=== PATIENT | female | born 1960 | race Caucasian/White ===

== ENCOUNTER 2016-07-19 07:14 | Emergency (ER) | payer OTHER, MEDICAID ==
[~2016-07-19] VITALS: Ht 162.6 cm; Wt 81.0 kg
[~2016-07-19 07:14] MED LIST: CLON1TAB PO; ESK450 PO; GLIP5TAB12 PO; METF500T4 PO; OMEP20CA10 PO; QUET200T PO; SITA100T6 PO
[2016-07-19] MEDS ORDERED: ACETAMINOPHEN WITH CODEINE 300/30MG TABLET PO ONE (08:15)
[2016-07-19 09:50] VITALS: BP 121/80
== END 2016-07-19 10:10 | disposition home or self-care (01) ==
LOC: ER 07:30
DX: S80.01XA Contusion of right knee, initial encounter (principal); F41.9 Anxiety disorder, unspecified; E11.9 Type 2 diabetes mellitus without complications; F17.200 Nicotine dependence, unspecified, uncomplicated; Z88.0 Allergy status to penicillin; Z59.0 Homelessness; Z88.1 Allergy status to other antibiotic agents; Z90.49 Acquired absence of other specified parts of digestive tract; Z90.710 Acquired absence of both cervix and uterus; Z79.899 Other long term (current) drug therapy; W01.0XXA Fall on same level from slipping, tripping and stumbling without subsequent striking against object, initial encounter; Y93.89 Activity, other specified; Y99.8 Other external cause status; Y92.89 Other specified places as the place of occurrence of the external cause
CPT/HCPCS: 73562; 73590; 81025; 99284

== ENCOUNTER 2016-10-23 23:21 | Emergency (ER) | payer OTHER, MEDICAID ==
[~2016-10-23] VITALS: Ht 162.6 cm; Wt 77.0 kg
[2016-10-24] MEDS ORDERED: SODIUM CHLORIDE 0.9% 1,000 ML IV ONE (01:27)
[2016-10-24] MEDS ORDERED: ONDANSETRON HCL 4MG/2ML VIAL IV STA (01:27)
[2016-10-24 01:45] LABS: BASOPHILS % 0.4 % (0.0-2.0); EOSINOPHILS % 1.8 % (0.0-5.0); HEMATOCRIT. 35.3 % (36.0-48.0); HEMOGLOBIN. 11.7 g/dL (12.0-16.0); LYMPHOCYTES % 34.5 % (20.0-50.0); MEAN CORPUSCULAR VOLUME 87.4 fL (81.0-99.0); MEAN PLATELET VOLUME 8.4 fl (7.4-10.4); MONOCYTES % 5.1 % (2.0-8.0); NEUTROPHILS % 58.2 % (40.0-76.0); PLATELET 177 x1000/uL (130-400); RED BLOOD CELL COUNT 4.04 mill/uL (4.2-5.4); RED CELL DISTRIBUTION WIDTH 14.7 % (11.6-14.6)
[2016-10-24 01:51] LABS: CHLORIDE 100 mEq/L (98-107)
[2016-10-24 01:52] LABS: INR 1.1
[2016-10-24 01:54] LABS: HCG SCREEN NEGATIVE
[2016-10-24 02:02] LABS: CARBON DIOXIDE 30 mEq/L (21-32); ETHANOL BLOOD < 10 mg/dL
[2016-10-24 03:55] LABS: CLARITY URINE CLOUDY (CLEAR); COLOR URINE YELLOW (YELLOW); GLUCOSE URINE 2+ (NEGATIVE); KETONES URINE 1+ (NEGATIVE); LEUKOCYTE ESTERASE URINE 1+ (NEGATIVE); NITRITE URINE NEGATIVE (NEGATIVE); OCCULT BLOOD URINE TRACE (NEGATIVE); PROTEIN URINE 1+ (NEGATIVE); SPECIFIC GRAVITY URINE 1.029 (1.005-1.030)
[2016-10-24 04:10] LABS: *AMPHETAMINES SCREEN URINE NEGATIVE (NEGATIVE); *BARBITURATES SCREEN URINE NEGATIVE (NEGATIVE); *BENZODIAZEPINES SCREEN URINE NEGATIVE (NEGATIVE); *COCAINE SCREEN URINE NEGATIVE (NEGATIVE); METHADONE URINE SCREEN NEGATIVE (NEGATIVE); OPIATES URINE SCREEN NEGATIVE (NEGATIVE); PHENCYCLIDINE URINE SCREEN NEGATIVE (NEGATIVE)
[2016-10-24 05:09] LABS: CANNABINOID URINE SCREEN NEGATIVE (NEGATIVE)
[2016-10-24 05:34] VITALS: BP 111/63
[2016-10-24] MEDS ORDERED: INSULIN REGULAR (HUMULIN R) 300UNITS/3ML SUBCUT ONE (05:45)
== END 2016-10-24 07:04 | disposition home or self-care (01) ==
LOC: ER 23:21
DX: E11.9 Type 2 diabetes mellitus without complications (principal); E86.0 Dehydration; F17.210 Nicotine dependence, cigarettes, uncomplicated; Z79.4 Long term (current) use of insulin; Z88.3 Allergy status to other anti-infective agents; Z88.0 Allergy status to penicillin
CPT/HCPCS: 36415; 80053; 80305; 80307; 80329; 81001; 82962; 83690; 84703; 85025; 85610; 96361; 96372; 96374; 99284; G0482; J1815; J2405; J7030

== ENCOUNTER 2020-01-18 13:26 | Emergency (ER) | payer OTHER, MEDICAID ==
[~2020-01-18] VITALS: Ht 160 cm; Wt 66.0 kg
[~2020-01-18 13:26] MED LIST changes: +METF-414 PO; -METF500T4 PO; -OMEP20CA10 PO; +OMEP20CA14 PO; +SITA100T11 PO; -SITA100T6 PO
[2020-01-18 13:29] VITALS: BP 156/79
== END 2020-01-18 14:46 | disposition left against medical advice (07) ==
LOC: ER 13:26
DX: F20.9 Schizophrenia, unspecified (principal); F31.9 Bipolar disorder, unspecified; E11.9 Type 2 diabetes mellitus without complications; Z79.899 Other long term (current) drug therapy; Z88.0 Allergy status to penicillin
CPT/HCPCS: 99281